=== PATIENT | female | born 1990 | race Caucasian/White ===

== ENCOUNTER 2021-03-09 21:23 | Emergency (ER) | payer MEDICAID, SELFPAY ==
[2021-03-09 22:23] VITALS: BP 118/75; PULSE 86; RESP 16; TEMP 37.1; O2SAT 97; BMI 21.7
--- NOTE | 2021-03-09 23:35 | XRR_ITS ---
PROCEDURE INFORMATION: Exam: XR Chest Exam date and time: 03/09/2021 11:35 PM Age: 30 years old Clinical indication: Shortness of breath; Patient HX: SOB TECHNIQUE: Imaging protocol: XR of the chest. Views: 1 view. COMPARISON: CR Chest 1 view [id number] 05/12/2016 4:39 PM FINDINGS: Lungs: No consolidation. Pleural spaces: Unremarkable. No pleural effusion. No pneumothorax. Heart/Mediastinum: No cardiomegaly. Bones/joints: No acute fracture. XR/XR chest 1V portable [id number] IMPRESSION: No acute findings.
--- NOTE | 2021-03-09 23:35 | ECG_ITS ---
[facility] ED Test Date: 2021-03-10 Pat Name: Jeannette Jones Department: Room: Gender: Female [employer] Technician: : 1990 Requested By: Selene Morales Order Number: [id number] Cee MD: Michelle Lopez M.D. Measurements Intervals [place] Rate: 68 P: 82 [place]: 147 QRS: 89 QRSD: 83 T: 65 QT: 403 QTc: 430 Interpretive Statements SINUS RHYTHM WITH SINUS ARRHYTHMIA POSSIBLE RIGHT VENTRICULAR CONDUCTION DELAY [RSR (QR) IN V1/V2] MODERATE T-WAVE ABNORMALITY, CONSIDER ANTERIOR ISCHEMIA [-0.1+ mV T WAVE IN V3/V4] No previous ECG available for comparison Electronically Signed On 03-14-2021 0:26:47 CDT by Michelle Lopez M.D. [email or web address]
--- NOTE | 2021-03-10 02:22 | PC.NURSE ---
pt just now getting into ER room 15
[2021-03-10 02:33] VITALS: BP 121/95; PULSE 94; RESP 17; O2SAT 99
[2021-03-10 02:40] LABS: Basophils % 0.4 %; Eosinophils # 0.1 10^3/uL (0.0-0.8); Hematocrit 40.9 % (37.0-47.0); Hemoglobin 13.4 g/dL (11.5-15.3); Lymphocytes # 3.1 10^3/uL (0.8-4.8); Lymphocytes % 38.1 %; Mean Corpuscular HGB Conc 32.8 g/dL (30.0-36.0); Mean Corpuscular Hemoglobin 29.8 pg (28.0-34.0); Mean Corpuscular Volume 90.9 fL (81-99); Mean Platelet Volume 9.8 fL (7.4-10.4); Monocytes # 0.6 10^3/uL (0.2-0.9); Monocytes % 6.8 %; Neutrophils # 4.41 10^3/uL (1.8-7.7); Neutrophils % 53.3 %; Nucleated Red Blood Cells % 0 %; Platelet Count 298 10^3/cmm (130-400); Red Cell Distribution Width 13.1 % (12.1-15.1); White Blood Count 8.3 10^3/uL (4.0-10.0)
--- NOTE | 2021-03-10 02:43 | ED_ITS ---
Documented by User: ASHLEIGH Montiel 03/10/21 18:26 HPI - General Adult General: Chief complaint: General Medical Stated complaint: sob, numbing in right arm Time Seen by Provider: 03/10/21 02:16 History of Present Illness: HPI narrative: Patient is a 30-year-old female comes to the ED with numbness in the right arm. Symptoms started approximately around 7 PM tonight. Patient says she described feeling off. She then developed some right arm numbness that started from her hand went all the way up into her right shoulder. She states she was just sitting in her car and her right arm was resting on the armrest when right arm numbness started. She also had some numbness and tingling in her lips but those symptoms resolved before coming to the ED. Patient says she had similar episode approximately 1 week ago and was seen at another hospital ED. She said some tests were done and a CT of head was done as well and all they found was UTI and put patient on Cipro. The numbness in the right arm has improved some while here in the ED. She says her right arm also feels a little heavy. Denies any vision changes or any other neurological symptoms. Patient does states she still has some dysuria and her last dose of Cipro was on Sunday. Associated symptoms: Reports malaise; Deny chest pain, dyspnea, headache(s), nausea, rash, palpitations or vomiting Review of Systems Const: Reports: malaise; Denies: fever(s), chills or fatigue Eyes: Denies: change in vision or eye discomfort ENMT: Denies: throat pain, odynophagia, nasal discharge or nasal congestion Card: Denies: chest pain, palpitations, edema, swelling of feet/ankles, dyspnea on exertion or orthopnea Resp: Denies: dyspnea, productive cough or non-productive cough GI: Denies: abdominal pain, nausea, vomiting, diarrhea, constipation or hematochezia : Reports: dysuria; Denies: flank pain or hematuria Musc: Denies: neck pain, back pain or extremity swelling Skin/Breast: Denies: rash or new lesions Neuro: Reports: numbness in extremities (right arm) and weakness in extremities (right arm); Denies: headache(s) ON LICENSE OF [facility] ED Female Reproductive History: Date of last menstrual period: 02/07/21 Physical Exam Const: COMMON NORMALS: no acute distress, patient oriented x3, healthy appearing and alert GENERAL APPEARANCE: cooperative and comfortable HENMT: COMMON NORMALS: normocephalic HEAD & SCALP: normocephalic MOUTH: Normal oral and palatal mucosa present THROAT: posterior oropharynx normal and uvula midline Eye: COMMON NORMALS: Equal, round and reactive pupils present, EOMs intact bilaterally and normal visual wiseman by confrontation PUPIL: Yes Equal, round and reactive pupils present Neck/C-Spine: COMMON NORMALS: supple GENERAL: Yes normal visual inspection Resp: COMMON NORMALS: normal respiratory effort, No retractions, No use of accessory muscles and clear to auscultation bilaterally AUSCULTATION: clear to auscultation bilaterally Cardio: COMMON NORMALS: regular rate, regular rhythm, S1 normal heart sound present, S2 normal heart sound present, No gallops present (Cardio), No clicks present (Cardio), No murmurs present (Cardio) and Peripheral pulses 2+ throughout RATE: regular rate RHYTHM: regular rhythm HEART SOUNDS: S1 normal heart sound present and S2 normal heart sound present PERIPHERAL PULSES: Peripheral pulses 2+ throughout GI: COMMON NORMALS: Normal to inspection, nondistended, normoactive bowel sounds present, Soft to palpation, non-tender and no masses PALPATION: Yes Soft to palpation : COMMON NORMALS: Yes no CVA tenderness BLADDER/KIDNEY EXAM: Yes no CVA tenderness Back/Pelvis: COMMON NORMALS: no CVA tenderness Extremity: COMMON NORMALS: capillary refill normal and no clubbing, cyanosis or edema GENERAL: Yes normal exam except as noted Neuro: COMMON NORMALS: patient oriented x3, CN's II-XII intact bilaterally and moves all extremities SENSORIUM/ORIENTATION: Yes alert COORDINATION/BALANCE: bwydwa-kq-grle test normal SPEECH: speech normal COORDINATION: ktbtyn-ad-bjry test normal OTHER: Patient does have some decreased sensation to right arm with some notable weakness to right arm as well. Skin: GENERAL SKIN EXAM: dry skin Course Vital Signs: Vital signs: Vital Signs Temperature 98.8 F 03/09/21 22:23 Pulse Rate 87 03/10/21 04:37 Respiratory Rate 17 03/10/21 02:33 Blood Pressure 120/92 03/10/21 04:37 Pulse Oximetry 100 03/10/21 04:37 [facility] - General Adult Lab Data: Attestation: I reviewed the patient's lab results. Labs: Lab Results 03/10/21 03/10/21 03/10/21 Range/Units 02:30 02:30 02:30 WBC 8.3 (4.0-10.0) 10^3/ uL RBC 4.50 (4.1-5.3) 10^6/u L Hgb 13.4 (11.5-15.3) g/dL Hct 40.9 (37.0-47.0) % MCV 90.9 (81-99) fL MCH 29.8 (28.0-34.0) pg MCHC 32.8 (30.0-36.0) g/dL RDW 13.1 (12.1-15.1) % Plt Count 298 (130-400) 10^3/c mm MPV 9.8 (7.4-10.4) fL Neut % (Auto) 53.3 % Lymph % (Auto) 38.1 % [place] % (Auto) 6.8 % Eos % (Auto) 1.0 % Baso % (Auto) 0.4 % Neut # (Auto) 4.41 (1.8-7.7) 10^3/u L Lymph # (Auto) 3.1 (0.8-4.8) 10^3/u L [place] # (Auto) 0.6 (0.2-0.9) 10^3/u L Eos # (Auto) 0.1 (0.0-0.8) 10^3/u L Baso # (Auto) 0.0 (0.0-0.1) 10^3/u L Nucleated RBC % (a uto) 0 % Nucleated RBCs # 0.0 /100WBC Sodium 136 (136-145) mmol/L Potassium 3.5 (3.5-5.1) mmol/L Chloride 104 (98-107) mmol/L Carbon Dioxide 21 L (22-29) mmol/L Anion Gap 14.5 (5-19) BUN 10 (6-20) mg/dL Creatinine 0.6 (0.5-0.9) mg/dL GFR Calculation 119.0 (90-130) mL/min Glucose 83 (65-115) mg/dL Calculated Osmolal ity 280 L (285-295) mOsm/k g Calcium 8.4 L (8.5-10.5) mg/dL Total Bilirubin 0.4 (0.15-1.2) mg/dL AST 13 (0-32) U/L ALT 12 (0-33) U/L Alkaline Phosphata se 52 (35-105) IU/L Troponin T Baselin e 6 (0-10) ng/L Troponin T 120 Min [place] (0-10) ng/L Delta Troponin T (0-10) ABS# Total Protein 7.1 (6.6-8.7) g/dL Albumin 4.3 (3.5-5.2) g/dL Globulin 2.8 (1.3-4.6) g/dL Urine Color (Yellow) Urine Appearance (CLEAR) Urine pH (5-7) Ur Specific Gravit y (1.005-1.030) Urine Protein (Negative) Urine Glucose (UA) (Normal) Urine Ketones (Negative) Urine Blood (Negative) Urine Nitrate (Negative) Urine Bilirubin (Negative) Urine Urobilinogen (Negative) mg/dL Ur Leukocyte Krista ase (Negative) Urine RBC (0-2) /hpf Urine WBC (0-5) /hpf Ur Squamous Epith Cells (0-5) /hpf Amorphous Sediment Urine Bacteria (NONE) /hpf Urine Mucus /hpf Urine HCG, Qual (Negative) 03/10/21 03/10/21 03/10/21 Range/Units 04:58 04:58 04:58 WBC (4.0-10.0) 10^3/ uL RBC (4.1-5.3) 10^6/u L Hgb (11.5-15.3) g/dL Hct (37.0-47.0) % MCV (81-99) fL MCH (28.0-34.0) pg MCHC (30.0-36.0) g/dL RDW (12.1-15.1) % Plt Count (130-400) 10^3/c mm MPV (7.4-10.4) fL Neut % (Auto) % Lymph % (Auto) % [place] % (Auto) % Eos % (Auto) % Baso % (Auto) % Neut # (Auto) (1.8-7.7) 10^3/u L Lymph # (Auto) (0.8-4.8) 10^3/u L [place] # (Auto) (0.2-0.9) 10^3/u L Eos # (Auto) (0.0-0.8) 10^3/u L Baso # (Auto) (0.0-0.1) 10^3/u L Nucleated RBC % (a uto) % Nucleated RBCs # /100WBC Sodium (136-145) mmol/L Potassium (3.5-5.1) mmol/L Chloride (98-107) mmol/L Carbon Dioxide (22-29) mmol/L Anion Gap (5-19) BUN (6-20) mg/dL Creatinine (0.5-0.9) mg/dL GFR Calculation (90-130) mL/min Glucose (65-115) mg/dL Calculated Osmolal ity (285-295) mOsm/k g Calcium (8.5-10.5) mg/dL Total Bilirubin (0.15-1.2) mg/dL AST (0-32) U/L ALT (0-33) U/L Alkaline Phosphata se (35-105) IU/L Troponin T Baselin e (0-10) ng/L Troponin T 120 Min [place] 6.00 (0-10) ng/L Delta Troponin T 0 (0-10) ABS# Total Protein (6.6-8.7) g/dL Albumin (3.5-5.2) g/dL Globulin (1.3-4.6) g/dL Urine Color Yellow (Yellow) Urine Appearance Sl hazy (CLEAR) Urine pH 5 (5-7) Ur Specific Gravit y 1.020 (1.005-1.030) Urine Protein Neg (Negative) Urine Glucose (UA) Norm (Normal) Urine Ketones 2+ H (Negative) Urine Blood Neg (Negative) Urine Nitrate Negative (Negative) Urine Bilirubin Neg (Negative) Urine Urobilinogen Norm (Negative) mg/dL Ur Leukocyte Krista ase 1+ H (Negative) Urine RBC 0-4 H (0-2) /hpf Urine WBC 25-40 H (0-5) /hpf Ur Squamous Epith Cells 25-40 H (0-5) /hpf Amorphous Sediment Not Reportable Urine Bacteria 2+ H (NONE) /hpf Urine Mucus 4+ /hpf Urine HCG, Qual Negative (Negative) Imaging Data^: CT Head: Attestation: I personally reviewed and interpreted this imaging study as follows: Radiologist's impression: [facility] [address] [place] [id number] [address] Scan Report Signed Patient: Jeannette Jones Unit #: [id number] : 1990 Age/Sex: 30 / F ADM Date: 03/09/21 Loc: ER Room/Bed: Attending Dr: Ordering Provider/Ordering MD: Lowell Fairbanks Date of Service: 03/10/21 Procedure(s): CT head wo con* [id number] Accession Number(s): [id number] Report Number: [id number] PROCEDURE INFORMATION: Exam: CT Head Without Contrast Exam date and time: 03/10/2021 2:42 AM Age: 30 years old Clinical indication: Weakness, extremity; Right; Patient HX: RT arm numbness. ; Additional info: Right arm numbness and weakness TECHNIQUE: Imaging protocol: Computed tomography of the head without contrast. Radiation optimization: All CT scans at this facility use at least one of these dose optimization techniques: automated exposure control; mA and/or kV adjustment per patient size (includes targeted exams where dose is matched to clinical indication); or iterative reconstruction. COMPARISON: No relevant prior studies available. RADIATION DOSE METRICS: Total DLP (mGy-cm): 786.25 FINDINGS: Brain: No hemorrhage. No edema, mass effect or midline shift. Cerebral ventricles: No ventriculomegaly. Paranasal sinuses: Visualized sinuses are unremarkable. No fluid levels. Mastoid air cells: No mastoid effusion. Bones/joints: No acute fracture. Soft tissues: Unremarkable. CT/CT head wo con* [id number] IMPRESSION: No acute intracranial abnormality. Radiation Dose CTDIVOL = (mGy): DLP = 786.25 (mGy-cm) Dictated By: Zack Thayer MD Signed By: Zack Thayer MD Signed Date/Time: 03/10/21406 DD/ 5 CXR: Attestation: I personally reviewed and interpreted this imaging study as foll ows: Radiologist's impression: [place] [address] XRay Report Signed Patient: Jeannette Jones Unit #: [id number] : 1990 Age/Sex: 30 / F ADM Date: 03/09/21 Loc: ER Room/Bed: Attending Dr: Ordering Provider/Ordering MD: Selene Morales MD Date of Service: 03/09/21 Procedure(s): XR chest 1V portable [id number] Accession Number(s): [id number] Report Number: [id number] PROCEDURE INFORMATION: Exam: XR Chest Exam date and time: 03/09/2021 11:35 PM Age: 30 years old Clinical indication: Shortness of breath; Patient HX: SOB TECHNIQUE: Imaging protocol: XR of the chest. Views: 1 view. COMPARISON: CR Chest 1 view [id number] 05/12/2016 4:39 PM FINDINGS: Lungs: No consolidation. Pleural spaces: Unremarkable. No pleural effusion. No pneumothorax. Heart/Mediastinum: No cardiomegaly. Bones/joints: No acute fracture. XR/XR chest 1V portable [id number] IMPRESSION: No acute findings. Dictated By: Zack Thayer MD Signed By: Zack Thayer MD Signed Date/Time: 03/10/21407 DD/ 5 EKG Data^: EKG 1: Attestation: I personally reviewed and interpreted this EKG as follows: EKG interpretation date: 03/10/21 Computer generated interpretation: Chest X-Ray 03/09/21 23:35 IMPRESSION: No acute findings. Head CT 03/10/21 02:42 IMPRESSION: No acute intracranial abnormality. Radiation Dose CTDIVOL = (mGy): DLP = 786.25 (mGy-cm) Normal sinus rhythm, 60 bpm, no ST segment elevation or depression seen. Discharge Plan Discharge Patient Disposition: Home Clinical Impression: Right arm numbness Condition: Stable Discharge Orders: Discharge ED (Routine); Ordered 03/10/21 Ordered By: Selene Morales Referrals: Daryl Fuentes MD [Primary Care Provider] - Discharge Diet: Regular Discharge Activity: Increase activity as tolerated Patient Instructions: Cubital Tunnel Syndrome (ED), Numbness and Tingling Activity Restrictions/Additional Instructions: Follow-up with medical provider as directed in 7-10 days for reevaluation. Take medications as prescribed. Return to the ER or your medical provider if condition worsens. Please read and understand discharge instructions. Thank you for choosing [facility] for your healthcare needs today. Please realize this is an emergency room and that we are providing you with a medical screening exam and this may not be complete and all inclusive of all the testing and or work up that you may need to determine your ailment or severity of your illness. It is very important that you follow up as instructed or that you return to the Emergency Department should you have concerns or if your condition changes or worsens in any way. Coding Level of Care Code ED Assistant Production Editor for Chg Fwd Exam Comprehensive Documented by User: Selene Morales MD 03/10/21 05:34 HPI - General Adult General: Chief complaint: General Medical Stated complaint: sob, numbing in right arm Time Seen by Provider: 03/10/21 02:16 Course Vital Signs: Vital signs: Vital Signs Temperature 98.8 F 03/09/21 22:23 Pulse Rate 87 03/10/21 04:37 Respiratory Rate 17 03/10/21 02:33 Blood Pressure 120/92 03/10/21 04:37 Pulse Oximetry 100 03/10/21 04:37 MDM - General Adult MDM Narrative: Medical decision making narrative: Patient presents here with paresthesia in her hands. Patient's blood work and imaging here are all normal. Took patient over from [facility] and I spoke to her and she feels improved. She is to follow-up with PCP in 5 to 7 days return if worsening. Lab Data: Labs: Lab Results 03/10/21 03/10/21 03/10/21 Range/Units 02:30 02:30 02:30 WBC 8.3 (4.0-10.0) 10^3/ uL RBC 4.50 (4.1-5.3) 10^6/u L Hgb 13.4 (11.5-15.3) g/dL Hct 40.9 (37.0-47.0) % MCV 90.9 (81-99) fL MCH 29.8 (28.0-34.0) pg MCHC 32.8 (30.0-36.0) g/dL RDW 13.1 (12.1-15.1) % Plt Count 298 (130-400) 10^3/c mm MPV 9.8 (7.4-10.4) fL Neut % (Auto) 53.3 % Lymph % (Auto) 38.1 % [place] % (Auto) 6.8 % Eos % (Auto) 1.0 % Baso % (Auto) 0.4 % Neut # (Auto) 4.41 (1.8-7.7) 10^3/u L Lymph # (Auto) 3.1 (0.8-4.8) 10^3/u L [place] # (Auto) 0.6 (0.2-0.9) 10^3/u L Eos # (Auto) 0.1 (0.0-0.8) 10^3/u L Baso # (Auto) 0.0 (0.0-0.1) 10^3/u L Nucleated RBC % (a uto) 0 % Nucleated RBCs # 0.0 /100WBC Sodium 136 (136-145) mmol/L Potassium 3.5 (3.5-5.1) mmol/L Chloride 104 (98-107) mmol/L Carbon Dioxide 21 L (22-29) mmol/L Anion Gap 14.5 (5-19) BUN 10 (6-20) mg/dL Creatinine 0.6 (0.5-0.9) mg/dL GFR Calculation 119.0 (90-130) mL/min Glucose 83 (65-115) mg/dL Calculated Osmolal ity 280 L (285-295) mOsm/k g Calcium 8.4 L (8.5-10.5) mg/dL Total Bilirubin 0.4 (0.15-1.2) mg/dL AST 13 (0-32) U/L ALT 12 (0-33) U/L Alkaline Phosphata se 52 (35-105) IU/L Troponin T Baselin e 6 (0-10) ng/L Troponin T 120 Min [place] (0-10) ng/L Delta Troponin T (0-10) ABS# Total Protein 7.1 (6.6-8.7) g/dL Albumin 4.3 (3.5-5.2) g/dL Globulin 2.8 (1.3-4.6) g/dL Urine Color (Yellow) Urine Appearance (CLEAR) Urine pH (5-7) Ur Specific Gravit y (1.005-1.030) Urine Protein (Negative) Urine Glucose (UA) (Normal) Urine Ketones (Negative) Urine Blood (Negative) Urine Nitrate (Negative) Urine Bilirubin (Negative) Urine Urobilinogen (Negative) mg/dL Ur Leukocyte Krista ase (Negative) Urine RBC (0-2) /hpf Urine WBC (0-5) /hpf Ur Squamous Epith Cells (0-5) /hpf Amorphous Sediment Urine Bacteria (NONE) /hpf Urine Mucus /hpf Urine HCG, Qual (Negative) 03/10/21 03/10/21 03/10/21 Range/Units 04:58 04:58 04:58 WBC (4.0-10.0) 10^3/ uL RBC (4.1-5.3) 10^6/u L Hgb (11.5-15.3) g/dL Hct (37.0-47.0) % MCV (81-99) fL MCH (28.0-34.0) pg MCHC (30.0-36.0) g/dL RDW (12.1-15.1) % Plt Count (130-400) 10^3/c mm MPV (7.4-10.4) fL Neut % (Auto) % Lymph % (Auto) % [place] % (Auto) % Eos % (Auto) % Baso % (Auto) % Neut # (Auto) (1.8-7.7) 10^3/u L Lymph # (Auto) (0.8-4.8) 10^3/u L [place] # (Auto) (0.2-0.9) 10^3/u L Eos # (Auto) (0.0-0.8) 10^3/u L Baso # (Auto) (0.0-0.1) 10^3/u L Nucleated RBC % (a uto) % Nucleated RBCs # /100WBC Sodium (136-145) mmol/L Potassium (3.5-5.1) mmol/L Chloride (98-107) mmol/L Carbon Dioxide (22-29) mmol/L Anion Gap (5-19) BUN (6-20) mg/dL Creatinine (0.5-0.9) mg/dL GFR Calculation (90-130) mL/min Glucose (65-115) mg/dL Calculated Osmolal ity (285-295) mOsm/k g Calcium (8.5-10.5) mg/dL Total Bilirubin (0.15-1.2) mg/dL AST (0-32) U/L ALT (0-33) U/L Alkaline Phosphata se (35-105) IU/L Troponin T Baselin e (0-10) ng/L Troponin T 120 Min [place] 6.00 (0-10) ng/L Delta Troponin T 0 (0-10) ABS# Total Protein (6.6-8.7) g/dL Albumin (3.5-5.2) g/dL Globulin (1.3-4.6) g/dL Urine Color Yellow (Yellow) Urine Appearance Sl hazy (CLEAR) Urine pH 5 (5-7) Ur Specific Gravit y 1.020 (1.005-1.030) Urine Protein Neg (Negative) Urine Glucose (UA) Norm (Normal) Urine Ketones 2+ H (Negative) Urine Blood Neg (Negative) Urine Nitrate Negative (Negative) Urine Bilirubin Neg (Negative) Urine Urobilinogen Norm (Negative) mg/dL Ur Leukocyte Krista ase 1+ H (Negative) Urine RBC 0-4 H (0-2) /hpf Urine WBC 25-40 H (0-5) /hpf Ur Squamous Epith Cells 25-40 H (0-5) /hpf Amorphous Sediment Not Reportable Urine Bacteria 2+ H (NONE) /hpf Urine Mucus 4+ /hpf Urine HCG, Qual Negative (Negative) EKG Data^: EKG 1: Computer generated interpretation: Chest X-Ray 03/09/21 23:35 IMPRESSION: No acute findings. Head CT 03/10/21 02:42 IMPRESSION: No acute intracranial abnormality. Radiation Dose CTDIVOL = (mGy): DLP = 786.25 (mGy-cm) Discharge Plan Discharge Patient Disposition: Home Clinical Impression: Right arm numbness Condition: Stable Discharge Orders: Discharge ED (Routine); Ordered 03/10/21 Ordered By: Selene Morales Referrals: Daryl Fuentes MD [Primary Care Provider] - Discharge Diet: Regular Discharge Activity: Increase activity as tolerated Patient Instructions: Cubital Tunnel Syndrome (ED), Numbness and Tingling Activity Restrictions/Additional Instructions: Follow-up with medical provider as directed in 7-10 days for reevaluation. Take medications as prescribed. Return to the ER or your medical provider if condition worsens. Please read and understand discharge instructions. Thank you for choosing [facility] for your healthcare needs today. Please realize this is an emergency room and that we are providing you with a medical screening exam and this may not be complete and all inclusive of all the testing and or work up that you may need to determine your ailment or severity of your illness. It is very important that you follow up as instructed or that you return to the Emergency Department should you have concerns or if your condition changes or worsens in any way. Coding Level of Care Code ED Assistant Production Editor for Srinivasa Lorenzo Exam Comprehensive
[2021-03-10 03:00] LABS: Troponin(5th) Baseline 6 ng/L (0-10)
[2021-03-10 03:02] LABS: Alanine Aminotransferase 12 U/L (0-33); Albumin Level 4.3 g/dL (3.5-5.2); Alkaline Phosphatase 52 IU/L (35-105); Anion Gap 14.5 (5-19); Aspartate Amino Transferase 13 U/L (0-32); Blood Urea Nitrogen 10 mg/dL (6-20); Calcium 8.4 mg/dL (8.5-10.5); Carbon Dioxide 21 mmol/L (22-29); Chloride 104 mmol/L (98-107); Globulin 2.8 g/dL (1.3-4.6); Glucose 83 mg/dL (65-115); Osmolality Calculated 280 mOsm/kg (285-295); Potassium 3.5 mmol/L (3.5-5.1); Sodium 136 mmol/L (136-145); Total Bilirubin 0.4 mg/dL (0.15-1.2); Total Protein 7.1 g/dL (6.6-8.7)
[2021-03-10 04:37] VITALS: BP 120/92; PULSE 87; O2SAT 100
[2021-03-10 05:17] LABS: Glucose Urine UA Norm (Normal); Protein Urine Neg (Negative); Urine Appearance SL Hazy (CLEAR); Urine Color Yellow (Yellow); pH Urine 5 (5-7)
[2021-03-10 05:18] LABS: Add Urine Culture? No; Add Urine Microscopic? YES; Bacteria Urine 2+ /hpf; Bilirubin Urine Neg (Negative); Blood Urine Neg (Negative); Ketones Urine 2+ (Negative); Leukocyte Esterase Urine 1+ (Negative); Mucus Urine 4+ /hpf; Nitrate Urine Negative (Negative); RBC Urine 0-4 /hpf (0-2); Squamous Epithelial Cell Urine 25-40 /hpf (0-5); Urobilinogen Urine Norm (Negative); WBC Urine 25-40 /hpf (0-5)
[2021-03-10 05:28] LABS: Troponin 5 2HR Delta 0 ABS# (0-10)
== END 2021-03-10 05:52 | disposition home or self-care (01) ==
PROVIDERS: Emergency Provider Emergency Medicine; PCP Obstetrics & Gynecology
DX: R20.0 Anesthesia of skin (principal)
CPT/HCPCS: 70450; 71045; 80053; 81001; 81025; 84484; 85025; 93005; 99283

== ENCOUNTER 2021-03-29 15:32 | Outpatient (CLI) | payer MEDICAID, SELFPAY ==
--- NOTE | 2021-03-29 | USCV_ITS ---
Jeannette Jones Age: 30 Gender: F : 1990 Exam Date: 03/29/2021 16:10 Ordering Phys: Karoline Quintero REST ROOM MATRON Technologist: Montserrat Zuleta Exam Location: [facility] [place] Indication: ATYPICAL CHEST PAIN BP: / HR: 75 Rhythm: Sinus Technical Quality: Adequate MEASUREMENTS (Male / Female) Normal Values 2D ECHO LV Diastolic Diameter PLAX 3.0 cm 4.2 - 5.9 / 3.9 - 5.3 cm LV Systolic Diameter PLAX 2.4 cm LV Chamber Size 3.5 cm IVS Diastolic Thickness 0.7 cm 0.6 - 1.0 / 0.6 - 0.9 cm IVS Systolic Thickness 1.1 cm LVPW Diastolic Thickness 1.1 cm 0.6 - 1.0 / 0.6 - 0.9 cm LVPW Systolic Thickness 1.2 cm RV Chamber Size 2.6 cm LVOT Diameter 2.0 cm LV Ejection Fraction 2D Teich 44.8 % LV Ejection Fraction MOD 2C 56.1 % LV Ejection Fraction 2C AL 57.4 % LA Diameter 2.5 cm LA Width 2.5 cm LA Height 2.5 cm RA Width 3.1 cm RA Height 3.0 cm Aorta at Sinotubular Diameter 2.0 cm M-MODE Aortic Annulus Diameter 2.8 cm LA Ao Ratio MM 1.1 MV E Point Septal Separation 0.3 cm DOPPLER AV Peak Velocity 115.0 cm/s LVOT Peak Velocity 91.0 cm/s AV Area Cont Eq vti 2.4 cm squared AV Area Cont Eq pk 2.5 cm squared MV Area PHT 4.8 cm squared Mitral E to A Ratio 1.7 MV E' Velocity 58.0 cm/s Mitral E to MV E' Ratio 7.0 Mitral E to LV E' Lateral Ratio 6.8 Mitral E to LV E' Septal Ratio 7.3 TR Peak Velocity 101.9 cm/s TR Peak Gradient 4.2 mmHg TR Mean Velocity 71.3 cm/s TR Mean Gradient 2.3 mmHg TR Velocity Time Integral 21.5 cm PV Peak Velocity 73.0 cm/s RV Acceleration Time 0.2 s RV Ejection Time 0.4 s RV AcT/ET 0.4 FINDINGS Left Ventricle Normal left ventricular cavity size. Normal left ventricular systolic function. No regional wall motion abnormalities. Left ventricular ejection fraction is estimated at 60 %. Right Ventricle The right ventricle is normal in size and function. RVSP could not be calculated due to incomplete tricuspid regurgitation velocity profile. Right Atrium The right atrium is normal in size. Left Atrium The left atrium is normal in size. Mitral Valve Structurally normal mitral valve without significant stenosis or prolapse. There is no mitral regurgitation. Aortic Valve Structurally normal aortic valve without significant sclerosis or stenosis. There is no aortic regurgitation. Tricuspid Valve Structurally normal tricuspid valve without significant stenosis or regurgitation. Pulmonic Valve Structurally normal pulmonic valve without significant stenosis. There is no pulmonic regurgitation. Pericardium Normal pericardium without effusion. Aorta Normal ascending aorta dimension. CONCLUSIONS 1-Normal left ventricular cavity size. Normal left ventricular systolic function. No regional wall motion abnormalities. Left ventricular ejection fraction is estimated at 60 %. 2-There is no pericardial effusion. 3-No significant valve abnormalities. 4-The right ventricle is normal in size and function. RVSP could not be calculated due to incomplete tricuspid regurgitation velocity profile. 5-Right atrial pressure is around 5 mm of mercury. 6-There are no prior echocardiogram studies to compare. Tony Bee MD (Electronically Signed) Final Date: 29 March 2021 19:35 S
== END 2021-03-29 15:33 | disposition home or self-care (01) ==
LOC: RAD 15:34
PROVIDERS: PCP Nurse Practitioner; Visit Provider Nurse Practitioner Family
DX: R07.89 Other chest pain (principal)
CPT/HCPCS: 93306

== ENCOUNTER 2021-04-07 13:42 | Outpatient (CLI) | payer MEDICAID, SELFPAY ==
--- NOTE | 2021-04-07 13:30 | USCV_ITS ---
Jeannette Jones Age: 30 Gender: F : 1990 Exam Date: 04/07/2021 14:15 Ordering Phys: Annabel Daly Technologist: Exam Location: [facility] [place] Indication: RT ARM PAIN AND NUMBNESS HISTORY: Upper extremity pain. PROCEDURES: Venous duplex imaging was performed in only the right upper extremity. The following venous structures were evaluated: internal jugular vein, subclavian vein, axillary vein, and brachial veins. In addition, the basilic vein, cephalic vein, radial vein, and ulnar vein. Serial compression, augmentation maneuvers, and spectral Doppler flow evaluation were performed FINDINGS: The veins of the right upper extremity are readily compressible with normal venous flow dynamics including spontaneous flow, respiratory phasic variation and augmentation. CONCLUSIONS No evidence for right upper extremity deep venous thrombosis. Dr. Jessie Ontiveros DO (Electronically Signed) Final Date: 07 April 2021 16:00 S
== END 2021-04-07 13:43 | disposition home or self-care (01) ==
LOC: US 13:45
PROVIDERS: PCP Nurse Practitioner; Visit Provider Nurse Practitioner Family
DX: R07.89 Other chest pain (principal); R23.0 Cyanosis; M79.601 Pain in right arm; R20.0 Anesthesia of skin
CPT/HCPCS: 93971

== ENCOUNTER 2021-04-13 11:48 | Outpatient (CLI) | payer MEDICAID, SELFPAY ==
--- NOTE | 2021-04-13 12:00 | USCV_ITS ---
Jeannette Jones Age: 30 Gender: F : 1990 Exam Date: 04/13/2021 12:19 Ordering Phys: Annabel Daly Technologist: Bryant Iqbal Exam Location: [facility] [place] Indication: PERIPHERAL CYANOSIS Risk Factors: Previous Vascular Surgery: Right BP: 118.00 / 65.00 Left BP: 111.00 / 66.00 RIGHT LEFT PSV PSV (cm/s) (cm/s) Waveform Waveform Triphasic 31.5 Subclavian Proximal Triphasic 33.8 Subclavian Distal Triphasic 124.6 Axillary Triphasic 93.7 Brachial Proximal Triphasic 66.0 Brachial Mid Triphasic 85.4 Brachial at AC Biphasic 37.5 Radial Proximal Biphasic 34.2 Radial Mid Biphasic 45.3 Radial at Wrist Triphasic 34.2 Ulnar Proximal Biphasic 30.9 Ulnar Mid Biphasic 35.5 Ulnar at Wrist FINDINGS Relatively low velocity high ressistant Doppler flow signals in the right upper extremity arteries. CONCLUSIONS No evidence of any significant fixed right upper extremity arterial obstruction, based on the above findings Dr Krystina Qureshi MD [facility] (Electronically Signed) Final Date: 13 April 2021 19:17 S
== END 2021-04-13 11:49 | disposition home or self-care (01) ==
PROVIDERS: PCP Nurse Practitioner; Visit Provider Nurse Practitioner Family
DX: R07.89 Other chest pain (principal); R23.0 Cyanosis
CPT/HCPCS: 93931

== ENCOUNTER → 2022-10-31 14:48 | Outpatient (BNVA) | payer MEDICAID, SELFPAY | PROVIDERS: PCP Nurse Practitioner; Visit Provider Nurse Practitioner | DX: M79.89 Other specified soft tissue disorders (principal) | CPT/HCPCS: 73130 ==

== ENCOUNTER 2023-01-17 06:05 | Day surgery (SDC) | payer MEDICAID, SELFPAY ==
[2023-01-16 08:28] VITALS: BMI 21.7
--- NOTE | 2023-01-16 08:43 | ANES.PREANE2 ---
Pre-Anesthetic Assessment Height/Weight: Height 1.57 m Weight 53.977 kg Operation Date: 01/17/23 07:20 Proposed Procedures p left middle finger sagital band reconstruction:[id number],S63.629R(Left) - Papa Fairbanks DO Familial anesthetic complications: None Social No alcohol and No tobacco Exam alert, oriented x 3, clear to auscultation bilaterally and regular rate & rhythm Airway Mallampati: Class II Dentition: full Neuropsych Issues in R arm were apparently d/t pinched nerve, no issues since going to chiropractor several years ago. cardiac etiology ruled out with dr. aaron Anesthetic Plan ASA status: 2 Anesthesia: MAC Risk of > 500 ml blood loss (7ml/kg in children): No Medications/Allergies Home Medications Medication Instructions Recorded Confirmed Last Taken Type No Known Home Medications 03/23/21 01/16/23 Unknown History Allergies Allergy/AdvReac Type Severity Reaction Status Date / Time No Known Allergies Allergy Verified 01/16/23 08:29 [facility] Anesthesia Medical History Atypical chest pain Syncope Vasovagal symptom Surgical History No history of previous surgery Family History Other Adopted Cancer Chronic kidney disease (CKD) Diabetes Social History Smoking and tobacco status: never smoked Alcohol intake: never Substance/Drug Use: current Other substance/drug use details: edibles to help sleep; had medical card Data Anesthesia Cardiac Studies: Echocardiogram 03/29/21
[2023-01-17] VITALS (22 sets, daily range): BP systolic 100–139; BP diastolic 6–88; PULSE 60–100; RESP 16–100; TEMP 36.3–36.4; O2SAT 99–100
[2023-01-17] MEDS: acetaminophen 1,000 MG/100 ML PIGGYBACK 400 MG IV (06:54)
[2023-01-17] MEDS: ketorolac 30 mg/mL INJ IVP (06:55)
[2023-01-17] MEDS: scopolamine 1.5 Patch 1 PATCH TRANSDERMA (06:55)
[2023-01-17] MEDS: sodium chloride 0.9% 1,000 ML 30 ML IV (06:56)
--- NOTE | 2023-01-17 07:58 | W.PM.OPSUD ---
Surgery/Procedure H&P Update DATE OF PROCEDURE: January 17, 2023 DATE H&P PERFORMED: 12/21/22 CHANGES TO PREVIOUS DOCUMENTATION: None. No change to patient's HPI since office visit on 12/21/2022. Patient has chronic sagittal band rupture with visible snapping of the extensor tendon over the left middle finger metacarpal at the MP joint. Plan will be for left middle finger sagittal band reconstruction. Talked about the ins and outs of the procedure and the postoperative protocol. Patient understand agree with current plan. All questions answered. 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
[2023-01-17] MEDS: ceFAZolin 2,000 MG in sodium chloride 0.9% (plus) 50 ML 100 MG IV (08:12)
[2023-01-17] MEDS: sodium bicarbonate 4.2% 0.5 mEq/mL SDV 5mL INTRADERMA (08:39)
[2023-01-17] MEDS: lidocaine-epi 1% 20 mL INJ INJECTION (08:40)
--- NOTE | 2023-01-17 10:09 | P.OP_ITS ---
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 Patient had findings consistent with a left middle finger radial sagittal band injury. Patient states that this is been over months ago. She has visible on examination snapping of the extensor tendon and she is able to hold this centralized while holding her left middle finger in extension however in flexion she is unable to perform full extension of the hand without considerable snapping of the extensor tendon over the MP joint consistent with a chronic radial sagittal band injury. Given her young age we talked about this in detail this has caused her significant pain and issues we will get her worked up appropriately in the outpatient setting with ruling out of RA as a possible cause but she did have a noticeable injury and trauma that she recalls of manipulating/popping her finger and she subsequently has had this issue since. We talked about treatment options leaving this alone versus surgical intervention given the chronicity of this would recommend a left middle finger sagittal band reconstruction if she would like to pursue surgery. At this point time she would like to have this is causing considerable pain as well as discomfort and dysfunction of the left middle finger and given her young age and family she would like to have this fixed. Understanding these risks and plan for surgery she agrees to proceed.? We will perform this procedure under local anesthesia to allow for patient to actively range to confirm appropriate centralization of the extensor tendon of the left middle finger.? Patient understands agrees to proceed with current plan.? All questions answered. Procedure: Patient was seen evaluate in the preoperative holding area.? Consent was reviewed and signed with patient.? The correct extremity was then marked.? Patient was seen evaluated by the anesthesia department once cleared for surgery she was taken back to the operative suite.? Patient then subsequently transported to the OR table.? All bony prominences well-padded and the left upper extremity was placed on an arm table.? A nonsterile tourniquet was applied to the left upper arm.? Patient for local anesthesia for the procedure. This point in time the left upper extremity was then prepped and draped in standard orthopedic fashion.? Patient received appropriate preoperative antibiotics.? Final timeout performed. Patient then underwent local anesthesia to the left middle finger.? Once appropriately anesthetized an Esmarch tourniquet was used exsanguinate the left upper extremity and tourniquet was insufflated to 250 mmHg.? A standard curvilinear incision was then made curving around the radial aspect of the left middle finger on the dorsal aspect of the MP joint with centering over the MP joint.? Total incision length was roughly 6 cm in length.? Sharp scalpel incision was made through skin and subcutaneous tissue.? I then utilized bipolar electrocautery to maintain exact hemostasis.? I switched to dissection scissors to to spread longitudinally in planes of the cutaneous nerve branches which were protected throughout this case and then subsequently identified the extensor mechanism over the MP joint.? It was longitudinally making a ulnar sided distally based tendon harvest.? Clearly evident on my dissection the patient's extensor tendon was on the ulnar aspect of the MP joint consistent with a chronic radial sagittal band injury.? At this point visibly had patient make a fist and extend and again visible considerable snapping of the extensor tendon was noted with chronic rupture of the radial sagittal band. Plan was for reconstruction as this was not repairable. At this point time this has been scarred on the ulnar aspect and I subsequently needed to release the ulnar sagittal band to help mobilize the adhered extensor mechanism over the MP joint.? I used 15 blade to release the ulnar sagittal band.? Plan was to utilize a Dunaway technique for recons truction. I then utilized scalpel as well as dissection scissors to mobilize the extensor mechanism.? At this point I mobilized around the attenuated radial sagittal band identify the collateral ligament to utilize this for my Dunaway technique. Once appropriately mobilized I then split the extensor tendon to the left middle finger creating a distally based ulnar-sided extensor tendon slip which was then Pulvertaft weaved through the radial aspect of the extensor tendon that was left intact.? 2 horizontal mattress sutures were then placed with 2-0 FiberWire suture.? This anchored the distally based tendon reconstruction to allow for no further propagation distally.? Once this was done I carried my dissection over to the radial collateral ligament in standard Dunaway technique fashion this was done bluntly with 90 degree hemostat. I then lassoed the extensor tendon slip around the radial collateral ligament and then subsequently applied a single stitch with a Pulvertaft weave of the tendon upon itself and had the patient make multiple passes of flexion and extension to verify did not over tension the ligament the tendon remains centralized and as a result I continued with my Pulvertaft weave to increase the reconstruction strength. This was secured with 2?0 Arthrex FiberWire suture and 3-0 Ethibond suture. the excess of the tendon was then sutured onto itself along the resi dual radial side of the extensor tendon.? This had excellent fixation.? At this point once completed my reconstruction and then have the patient again make a full fist and extend and the tendon remains centralized with no snapping of the extensor mechanism this was satisfactory of a left middle finger sagittal band reconstruction patient was able to visualize this and was satisfied with her results. This point time tourniquet was deflated.? Wound bed was thoroughly irrigated.? Hemostasis was satisfactory with bipolar electrocautery.? Incision was then closed in layered fashion with interrupted 3-0 Vicryl suture and Monocryl Dermabond and Steri-Strips.? Dressings were then placed with Xeroform 4 x 4's Curlex and an volar blocking splint was allowed to keep the MP joint in full extension to the left middle finger. Patient was awake from anesthesia and she was taken back to PACU in stable condition.? Patient tolerated procedure without complications. Disposition: Patient taken to PACU in stable condition recovering well.? Dressing on in place clean dry and intact she received appropriate discharge instruction as well as pain medication postoperatively.? We will give patient into our OT hand therapy program for left middle finger radial sagittal band reconstruction rehab protocol.? Patient understands and agrees with current plan.? All questions answered.? She will see me in the office in 2 weeks.
--- NOTE | 2023-01-17 10:09 | P.OP_ITS ---
Brief Operative Note Date of procedure: 01/17/23 Pre-op diagnosis: Left middle finger sagittal band rupture (chronic) Post-op diagnosis: same Procedure Done: Left middle finger sagittal band reconstruction Surgeon: Papa Fairbanks Estimated blood loss (mL): 4 Complications: none Post-op Plan: Patient taken to PACU in stable condition she had underwent an local anesthetic and had no issues during the procedure she was taken back to the preoperative holding area and recovered there. She received appropriate discharge in struction as well as pain medication postoperatively. At this point time she is placed with her MPs in full extension as well as PIPs in full extension with a volar blocking splint to protect repair/reconstruction at this time we will follow-up with patient in the office in 2 weeks at that point in time we will reevaluate incision and begin the progress of the OT hand therapy protocol for sagittal band reconstruction. Patient understands to be nonweightbearing keep incision clean dry and intact once again received appropriate discharge instructions as well as pain medication postoperatively. We will follow-up in the office in 2 weeks Condition: stable Disposition: same day Coding Level of Care Code Acute Code for Srinivasa Lorenzo
--- NOTE | 2023-01-17 10:09 | PM.PACU ---
PACU note Narrative: Patient taken back to the preoperative holding area in stable condition she has decree sensation secondary to the left middle finger secondary to local anesthesia. Fingertips warm well perfused with cap refill less than 2 seconds splint on in place clean dry and intact unable assess motor secondary to splint limiting examination however is able to subtly wiggle fingers. All questions answered. Pain controlled. Exam: awake Disposition: discharged
[2023-01-17] MEDS: HYDROcodone-acetaminophen 5-325 mg Tablet 1 TAB PO (10:22)
--- NOTE | 2023-01-17 13:25 | ANE.PACU2 ---
Inpatient post-anesthesia follow up: Airway intact: Yes Vital signs: Temperature 97.4 F Pulse Rate 79 Respiratory Rate 16 Blood Pressure 121/80 Pulse Oximetry 100 Oxygen Delivery Me thod Room Air Oxygen Flow Rate Fraction of Inspir ed Oxygen Hydration adequate: Yes Nausea and vomiting: Yes Pain level: 1 Mental status: Baseline
== END 2023-01-17 10:37 | disposition home or self-care (01) ==
PROVIDERS: PCP Nurse Practitioner; Visit Provider Student in an Organized Health Care Education/Training Program
PROC: (CPT 26437; principal; 2023-01-17 07:40)
DX: S66.303A Unspecified injury of extensor muscle, fascia and tendon of left middle finger at wrist and hand level, initial encounter (principal); X58.XXXA Exposure to other specified factors, initial encounter
CPT/HCPCS: 26437; 81025; J0131; J0690; J1885; J2795; J7030

== ENCOUNTER → 2023-01-29 08:10 | Outpatient (BNVA) | payer MEDICAID, SELFPAY | PROVIDERS: PCP Nurse Practitioner; Visit Provider Student in an Organized Health Care Education/Training Program | DX: S63.653D Sprain of metacarpophalangeal joint of left middle finger, subsequent encounter (principal); X58.XXXD Exposure to other specified factors, subsequent encounter; Z98.890 Other specified postprocedural states | CPT/HCPCS: 73130 ==

== ENCOUNTER 2023-01-30 13:25 | Outpatient (RCR) | payer MEDICAID, SELFPAY | END 2023-02-09 23:59 | disposition home or self-care (01) | LOC: SOT 13:25 | PROVIDERS: PCP Nurse Practitioner; Visit Provider Student in an Organized Health Care Education/Training Program | DX: Z47.89 Encounter for other orthopedic aftercare (principal) | CPT/HCPCS: 97760; L3925 ==

== ENCOUNTER 2023-03-08 06:00 | Outpatient (RCR) | payer MEDICAID, SELFPAY | END 2023-03-12 23:59 | disposition home or self-care (01) | LOC: SOT 06:00 | PROVIDERS: PCP Nurse Practitioner; Visit Provider Student in an Organized Health Care Education/Training Program | DX: Z47.89 Encounter for other orthopedic aftercare (principal) | CPT/HCPCS: 97110; 97165; 97530 ==

== ENCOUNTER 2023-03-13 06:00 | Outpatient (RCR) | payer MEDICAID, SELFPAY | END 2023-04-12 23:59 | disposition home or self-care (01) | LOC: SOT 06:00 | PROVIDERS: PCP Nurse Practitioner; Visit Provider Student in an Organized Health Care Education/Training Program | DX: Z47.89 Encounter for other orthopedic aftercare (principal) | CPT/HCPCS: 97022; 97110; 97140 ==

== ENCOUNTER 2023-10-28 12:04 | Outpatient (CLI) | payer MEDICAID, SELFPAY ==
[2023-10-28 12:13] VITALS: RESP 16; BMI 24.3
[2023-10-28 12:24] VITALS: BP 128/73; PULSE 94
[2023-10-28 12:39] VITALS: BP 119/70; PULSE 96
[2023-10-28 12:54] VITALS: BP 120/71; PULSE 94
[2023-10-28] MEDS: acetaminophen 500 mg Tablet 1000 MG PO (12:56)
[2023-10-28 13:04] LABS: Urine Appearance Clear (CLEAR); Urine Color Straw (Yellow); pH Urine 8 (5-7)
[2023-10-28 13:05] LABS: Add Urine Culture? No; Amorphous Sediment Urine TRACE /hpf; Bacteria Urine TRACE /hpf; Bilirubin Urine Neg (Negative); Blood Urine Neg (Negative); Glucose Urine UA Norm (Normal); Ketones Urine Negative (Negative); Leukocyte Esterase Urine Negative (Negative); Nitrate Urine Negative (Negative); Protein Urine Neg (Negative); Squamous Epithelial Cell Urine 0-4 /hpf (0-5); Sulfosalicylic Acid Urine Negative (Negative); Urobilinogen Urine Norm (Negative); WBC Urine RARE /hpf (0-5)
[2023-10-28 13:10] VITALS: BP 120/71; PULSE 94
== END 2023-10-28 13:16 | disposition home or self-care (01) ==
LOC: OPOB 12:11 → OBGYN 12:12
PROVIDERS: PCP Nurse Practitioner; Visit Provider Family Medicine
DX: O26.899 Other specified pregnancy related conditions, unspecified trimester (principal); Z3A.00 Weeks of gestation of pregnancy not specified; R10.9 Unspecified abdominal pain; R51.9 Headache, unspecified
CPT/HCPCS: 81001; 99211

== ENCOUNTER 2024-02-03 14:28 | Inpatient (IN) | payer MEDICAID, SELFPAY ==
[2024-02-03] VITALS (28 sets, daily range): BP systolic 87–151; BP diastolic 50–88; PULSE 81–173; RESP 16–18; TEMP 36.4–36.6; O2SAT 97; BMI 26.2
[2024-02-03 16:23] LABS: Basophils % 0.2 %; Eosinophils % 0.4 %; Hematocrit 39.8 % (36-47); Lymphocytes # 1.5 10^3/uL (0.8-4.8); Lymphocytes % 15.1 %; Mean Corpuscular HGB Conc 33.7 g/dL (30-55); Mean Corpuscular Hemoglobin 30.6 pg (27-33); Mean Corpuscular Volume 90.9 fl (85-98); Mean Platelet Volume 11.7 fL (7.4-10.4); Monocytes # 0.6 10^3/uL (0.2-0.9); Monocytes % 5.8 %; Neutrophils # 7.61 10^3/uL (1.8-7.7); Neutrophils % 78.1 %; Nucleated Red Blood Cells % 0 %; Platelet Count 253 10^3/cmm (157-399); Red Blood Count 4.38 10^6/uL (3.85-5.65); Red Cell Distribution Width 12.9 % (12.1-15.1); White Blood Count 9.75 10^3/uL (3.29-11.43)
[2024-02-03 16:52] LABS: Nitrazine Paper, PH Positive
[2024-02-03] MEDS: dextrose 5%-lactated ringers 1,000 ML 125 ML IV (17:48)
[2024-02-03] MEDS: oxytocin 30 UNIT/500 ML BAG IV (17:53)
[2024-02-03] MEDS: lidocaine 2% INJ 20 mL INJECTION (19:02)
--- NOTE | 2024-02-03 19:18 | PM.OBGYHP ---
Providers/Chief Complaint Admitting Physician: Chaz Perez MD Primary Care Provider: KINA Arechiga Chief Complaint: possible ROM HPI [facility] History of Present Illness Jeannette Jones is a 33 year old G3, P2 female that presents at 38 weeks 6 days with spontaneous rupture of membranes. This occurred approximately 2 hours prior to arrival. Patient was myrtle sporadically initially, but they did increase in intensity and frequency. She did not make very good change initially so Pitocin was started. Contractions became much more severe and frequent and she quickly changed from 4 cm to complete. care was good and unremarkable. GBS was negative. Present Details : 3 Para: 2 care: good care Ultrasounds: normal 1st trimester US and normal mid trimester US Obstetrical complications: none Labs Rubella: Immune RPR: Negative GBS: Negative Review of Systems General: Reports: 10 or more systems reviewed and unremarkable except in HPI and below Medications/Allergies Home Medications Medication Instructions Recorded Confirmed Last Taken Type vit no.133-ferrous 1 tab PO DAILY 10/28/23 02/03/24 02/02/24 20:00 History fumarate 28 mg-folic acid 800 mcg tablet () Allergies Allergy/AdvReac Type Severity Reaction Status Date / Time No Known Allergies Allergy Verified 05/01/23 10:50 PFSH [facility] PFSH: Medical History Atypical chest pain Syncope Vasovagal symptom Surgical History No history of previous surgery Family History Other Adopted Cancer Chronic kidney disease (CKD) Diabetes Social History Smoking and tobacco/nicotine status: never used tobacco/nicotine Alcohol intake: never Substance/Drug Use: current Other substance/drug use details: edibles to help sleep; had medical card Vitals/I&O/Wt Last Vital Signs Pulse 102 H 02/03/24 19:07 Resp 16 02/03/24 14:16 BP 87/50 02/03/24 19:07 O2 Del Method Room Air 02/03/24 14:16 Weight last 48 hrs Weight 64.864 kg Physical Exam Const: COMMON NORMALS: no acute distress, average body habitus, patient oriented x3, healthy appearing and alert Resp: COMMON NORMALS: normal respiratory effort, No retractions and No use of accessory muscles Cardio: COMMON NORMALS: no JVD, regular rate and regular rhythm GI: OTHER: Gravid uterus Extremity: COMMON NORMALS: normal to inspection and no clubbing, cyanosis or edema Neuro: COMMON NORMALS: moves all extremities, no focal motor deficits and no sensory deficits noted Psych: COMMON NORMALS: mental status grossly normal and cooperative Skin: COMMON NORMALS: no rashes or lesions noted Data 02/03/24 15:06 Results Labs OB ([facility]): Blood Type A Positive 02/03/24 Antibody Screen Negative 02/03/24 Hct 39.8 % (36-47) 02/03/24 Hgb 13.40 g/dL (11.27-16.99) 02/03/24 Rho(D) Type Rh positive 02/03/24 Plt Count 253 10^3/cmm (157-399) 02/03/24 A&P Assessment and plan (1) Rupture, membranes, premature: Continue normal labor management Qualifiers: PROM onset of labor timing: onset of labor within 24 hours of rupture PROM gestational age: full term Qualified Code(s): O42.02 - Full-term premature rupture of membranes, onset of labor within 24 hours of rupture (2) Term : (3) 38 weeks gestation of : Attestations Medical Necessity Statement*: Patient admitted for rupture membranes and labor. Anticipate at least 1 midnight stay. Coding Level of Care Code Acute Code for Chg Fwd Diagnoses Full-term premature rupture of membranes with onset of labor within 24 hours of rupture O42.02 PROM onset of labor timing: onset of labor within 24 hours of rupture PROM gestational age: full term Term Z34.90 38 weeks gestation of Z3A.38
--- NOTE | 2024-02-03 19:25 | PM.DELIVERY ---
Delivery Note: Date of delivery: February 03, 2024 Pre-delivery diagnoses: Premature rupture membranes, term intrauterine Post-delivery diagnoses: Same Procedure: Spontaneous vaginal delivery Delivering Physician: Dr. Siddhartha Perez Estimated blood loss (mL): 200 Pre-Delivery Course: Patient presented with rupture membranes. Labor needed to be augmented with Pitocin to complete dilation. Delivery: Once patient was completely dilated and had the urge to push the patient was put into the normal lithotomy position. The patient quickly delivered 's head followed by body without any issues. was placed onto mother's abdomen and after delay the cord was clamped and cut. Placenta was delivered soon after. Review of the perineum did show a second-degree perineal repair. 2% lidocaine was utilized to the area of the tear. The tear was then repaired with 2-0 Vicryl. Uterus was firm and below the umbilicus and bleeding was controlled. Post-Delivery Status: Stable A&P Assessment and plan (1) Spontaneous vaginal delivery: Proceed with routine care Coding Level of Care Code Acute Code for Chg Fwd Diagnoses Spontaneous vaginal delivery O80
[2024-02-04 00:10] VITALS: BP 113/59; PULSE 109; RESP 16; O2SAT 97
[2024-02-04 04:28] VITALS: BP 126/78; PULSE 93; O2SAT 97
--- NOTE | 2024-02-04 07:15 | P.DS_ITS ---
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 Hospital Course Hospital Course Patient presented with rupture membranes and after a small amount of augmentation did dilate to completion and delivered a viable female without difficulty. care was unremarkable. Vital signs have remained stable. Information Peripartum Data: Delivery Method: Vaginal Laceration description: Perineal - 2nd Degree complications: none Physical Exam Const: COMMON NORMALS: no acute distress, average body habitus, patient oriented x3, healthy appearing and alert Neck/C-Spine: COMMON NORMALS: no JVD Resp: COMMON NORMALS: normal respiratory effort, No retractions and No use of accessory muscles Cardio: COMMON NORMALS: no JVD, regular rate and regular rhythm RATE: regular rate RHYTHM: regular rhythm GI: OTHER: Uterus firm and below umbilicus Extremity: COMMON NORMALS: normal to inspection and no clubbing, cyanosis or edema Neuro: COMMON NORMALS: patient oriented x3, moves all extremities, no focal motor deficits and no sensory deficits noted SENSORIUM/ORIENTATION: Yes alert Psych: COMMON NORMALS: mental status grossly normal and cooperative Skin: COMMON NORMALS: no rashes or lesions noted GENERAL SKIN EXAM: no rashes or lesions noted Discharge Data Studies Completed and Pending Pending at discharge Category Date Time Status Hemagram Timed Lab 02/04/24 07:17 Uncollected Laboratory Results WBC 9.75 10^3/uL (3.29-11.43) 02/03/24 15:06 RBC 4.38 10^6/uL (3.85-5.65) 02/03/24 15:06 Hgb 13.40 g/dL (11.27-16.99) 02/03/24 15:06 Hct 39.8 % (36-47) 02/03/24 15:06 MCV 90.9 fl (85-98) 02/03/24 15:06 MCH 30.6 pg (27-33) 02/03/24 15:06 MCHC 33.7 g/dL (30-55) 02/03/24 15:06 RDW 12.9 % (12.1-15.1) 02/03/24 15:06 Plt Count 253 10^3/cmm (157-399) 02/03/24 15:06 MPV 11.7 fL (7.4-10.4) H 02/03/24 15:06 Neut % (Auto) 78.1 % 02/03/24 15:06 Lymph % (Auto) 15.1 % 02/03/24 15:06 Orange % (Auto) 5.8 % 02/03/24 15:06 Eos % (Auto) 0.4 % 02/03/24 15:06 Baso % (Auto) 0.2 % 02/03/24 15:06 Neut # (Auto) 7.61 10^3/uL (1.8-7.7) 02/03/24 15:06 Lymph # (Auto) 1.5 10^3/uL (0.8-4.8) 02/03/24 15:06 Orange # (Auto) 0.6 10^3/uL (0.2-0.9) 02/03/24 15:06 Eos # (Auto) 0.0 10^3/uL (0.0-0.8) 02/03/24 15:06 Baso # (Auto) 0.0 10^3/uL (0.0-0.1) 02/03/24 15:06 Nucleated RBC % (auto) 0 % 02/03/24 15:06 Nucleated RBCs # 0.0 /100WBC 02/03/24 15:06 Fluid pH (paper) Positive H 02/03/24 14:13 Blood Type A Positive 02/03/24 15:06 Rho(D) Type Rh positive 02/03/24 15:06 Antibody Screen Negative 02/03/24 15:06 Vitals Last Vital Signs Temp 97.9 F 02/03/24 22:00 Pulse 93 02/04/24 04:28 Resp 16 02/04/24 00:10 BP 126/78 02/04/24 04:28 Pulse Ox 97 02/04/24 04:28 O2 Del Method Room Air 06/24/24 04:28 Results Labs OB ([facility]): Blood Type A Positive 02/03/24 Antibody Screen Negative 02/03/24 Hct 39.8 % (36-47) 02/03/24 Hgb 13.40 g/dL (11.27-16.99) 02/03/24 Rho(D) Type Rh positive 02/03/24 Plt Count 253 10^3/cmm (157-399) 02/03/24 Discharge Plan Discharge Patient Disposition: Home Condition: Stable Prescriptions: Continued 28-800 mg-mcg Tablet 1 tab PO DAILY Referrals: Chaz Perez MD [Physician] - 6 Weeks Discharge Diet: Usual diet Discharge Activity: Limit activity as instructed Patient Instructions: Opioid Safety Discharge Attestations 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
[2024-02-04 08:01] LABS: Hematocrit 36.5 % (36-47); Mean Corpuscular HGB Conc 33.4 g/dL (30-55); Mean Corpuscular Hemoglobin 30.7 pg (27-33); Mean Corpuscular Volume 91.7 fl (85-98); Mean Platelet Volume 10.9 fL (7.4-10.4); Platelet Count 203 10^3/cmm (157-399); Red Blood Count 3.98 10^6/uL (3.85-5.65); Red Cell Distribution Width 12.9 % (12.1-15.1); White Blood Count 16.22 10^3/uL (3.29-11.43)
[2024-02-04] MEDS: docusate sodium 100 mg Capsule PO (09:39)
[2024-02-04] MEDS: PRENATAL VIT NO.130/IRON/FOLIC 1 EACH TABLET PO (09:39)
[2024-02-04 17:40] VITALS: BP 114/75; PULSE 89; RESP 16; TEMP 36.6
[2024-02-04] MEDS: ibuprofen 800 mg tablet PO (20:14)
[2024-02-04 20:30] VITALS: BP 110/75; PULSE 93; RESP 17; TEMP 36.9; O2SAT 97
== END 2024-02-04 20:41 | disposition home or self-care (01) | DRG 807 ==
LOC: OPOB 14:29 → OBGYN 14:29
PROVIDERS: Admitting Provider Family Medicine; PCP Nurse Practitioner; Visit Provider Family Medicine
DX: O42.02 Full-term premature rupture of membranes, onset of labor within 24 hours of rupture (principal); Z37.0 Single live birth; O70.1 Second degree perineal laceration during delivery; Z3A.38 38 weeks gestation of pregnancy
CPT/HCPCS: 36415; 59025; 59409; 83986; 85025; 85027; 86850; 86900; 98960; 99211; J2590; J7121